=== PATIENT | female | born 1930 | race Caucasian/White ===

== ENCOUNTER 2017-04-05 18:11 | Observation (INO) | payer OTHER ==
[~2017-04-05] VITALS: Ht 170.2 cm; Wt 83.0 kg
[~2017-04-05 18:11] MED LIST: 1-ME1LIQ PO; AMOX875T20 PO; ASPI81TA82 PO; CHOL1CAP6 PO; CRANCAP11 PO; FISH1000 PO; LORTA5 PO; LOVA40TA PO; METO50TA PO; TAB-TAB PO; VITA100017 PO
[2017-04-05 18:16] VITALS: BP 151/79; PULSE 74; RESP 20; TEMP 98.9; O2SAT 96
[2017-04-05 18:33] VITALS: O2SAT 96
--- NOTE | 2017-04-05 18:39 | PD ---
HPI Chief Complaint: Allergic/Adverse Reaction Time Seen by Provider: 18:25 Travel History International Travel<30 days: No Contact w/Intl Traveler<30days: No Traveled to known affect area: No History of Present Illness HPI 86-year-old female here for evaluation of possible reaction to Macrobid. Patient reports that she has had a UTI all month and this is the fourth antibiotic that she has been prescribed by urologist Dr. Downs. She was previously on Macrobid 50 mg twice a day, and today started 100 mg. Her first dose was at around 11:00 AM. Her symptoms started a couple hours later and consisted of diffuse jitteriness, dyspnea, and chest pain. Patient reports that the chest pains were sharp/pressure, and moved all around her chest. She states that the chest pain resolved about an hour ago. There were no modifying factors. She is having mild dyspnea. No tongue or lip swelling. No vomiting. No rash. She is still feeling "shaky." No known history of coronary artery disease. No history of DVT or PE. No hemoptysis. 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 UTI) Hepatitis: No Hiatal Hernia: No Hypertension: Yes Immune Disorder: No Musculoskeletal: Yes (ARTHRITIS) Neurologic: No Psychiatric: Yes (CLAUSTRAPHOBIA (PANIC)) Reproductive: No Respiratory: No Thyroid Disease: No Tetanus Vaccination: < 5 Years Influenza Vaccination: Yes Past Surgical History AICD: No Gynecologic Surgery: Yes (TOTAL HYSTERECTOMY) Joint Replacement: Yes (BRIAN. KNEES) Pacemaker: No Other Surgery: Yes (MELLANOMA ON FACE. VERICOSE VEINS LEFT LEG) Social History Alcohol Use: Yes (2-3 WINE WEEKLY) Tobacco Use: No (A LITTLE MANY YEARS AGO.) Substance Use: No Allergies-Medications (Allergen,Severity, Reaction): Coded Allergies: Nitrofurantoin (Verified Allergy, Severe, Shortness of Breath, 04/05/17) Reported Meds & Prescriptions Reported Meds & Active Scripts Active Review of Systems Except as stated in HPI: all other systems reviewed are Neg Physical Exam Narrative GENERAL: Well-developed, well-nourished, awake, alert, comfortable, no acute distress. SKIN: Focused skin assessment warm/dry. No rash. HEAD: Atraumatic. Normocephalic. EYES: Pupils equal and round. No scleral icterus. No injection or drainage. ENT: Mucous membranes pink and moist. No tongue or lip swelling. No drooling or stridor. NECK: Trachea midline. No JVD. CARDIOVASCULAR: Regular rate and rhythm. RESPIRATORY: No accessory muscle use. Clear to auscultation. Breath sounds equal bilaterally. GASTROINTESTINAL: Abdomen soft, non-tender, nondistended. MUSCULOSKELETAL: No obvious deformities. No clubbing. No cyanosis. No edema. NEUROLOGICAL: Awake and alert. No obvious cranial nerve deficits. Motor grossly within normal limits. Normal speech. PSYCHIATRIC: Appropriate mood and affect; insight and judgment normal. Data Data Last Documented VS Vital Signs Date Time Temp Pulse Resp B/P Pulse Ox O2 Delivery O2 Flow Rate FiO2 04/05/17 19:11 65 18 154/70 97 Room Air 04/05/17 18:16 98.9 Orders Electrocardiogram (04/05/17 18:31) Basic Metabolic Panel (Bmp) (04/05/17 18:31) Ckmb (Isoenzyme) Profile (04/05/17 18:31) Complete Blood Count With Diff (04/05/17 18:31) Magnesium (Mg) (04/05/17 18:31) Prothrombin Time / Inr (Pt) (04/05/17 18:31) Act Partial Throm Time (Ptt) (04/05/17 18:31) Troponin I (04/05/17 18:31) Chest, Single Ap (04/05/17 18:31) Ecg Monitoring (04/05/17 18:31) Iv Access Insert/Monitor (04/05/17 18:31) Oximetry (04/05/17 18:31) Sodium Chloride 0.9% Flush (Ns Flush) (04/05/17 18:45) Diphenhydramine Inj (Benadryl Inj) (04/05/17 18:45) CKMB (04/05/17 18:43) CKMB% (04/05/17 18:43) Urinalysis - C+S If Indicated (04/05/17 19:44) Ct Abd/Pel W Iv Contrast(Rout) (04/05/17 ) Iohexol 350 Inj (Omnipaque 350 Inj) (04/05/17 20:12) Aspirin Chew (Aspirin Chew) (04/05/17 21:15) Labs Laboratory Tests Test 04/05/17 04/05/17 18:43 20:40 White Blood Count 9.4 TH/MM3 Red Blood Count 4.05 MIL/MM3 Hemoglobin 12.3 GM/DL Hematocrit 36.4 % Mean Corpuscular Volume 89.9 FL Mean Corpuscular Hemoglobin 30.3 PG Mean Corpuscular Hemoglobin 33.7 % Concent Red Cell Distribution Width 13.2 % Platelet Count 215 TH/MM3 Mean Platelet Volume 8.1 FL Neutrophils (%) (Auto) 84.3 % Lymphocytes (%) (Auto) 6.4 % Monocytes (%) (Auto) 3.7 % Eosinophils (%) (Auto) 1.4 % Basophils (%) (Auto) 4.2 % Neutrophils # (Auto) 8.0 TH/MM3 Lymphocytes # (Auto) 0.6 TH/MM3 Monocytes # (Auto) 0.3 TH/MM3 Eosinophils # (Auto) 0.1 TH/MM3 Basophils # (Auto) 0.4 TH/MM3 CBC Comment AUTO DIFF Differential Total Cells 100 Counted Neutrophils % (Manual) 80 % Band Neutrophils % 10 % Lymphocytes % 3 % Monocytes % 6 % Eosinophils % 1 % Neutrophils # (Manual) 8.5 TH/MM3 Differential Comment FINAL DIFF MANUAL Platelet Estimate NORMAL Platelet Morphology Comment NORMAL Red Cell Morphology Comment NORMAL Prothrombin Time 10.7 SEC Prothromb Time International 1.0 RATIO Ratio Activated Partial 26.2 SEC Thromboplast Time Sodium Level 140 MEQ/L Potassium Level 3.6 MEQ/L Chloride Level 103 MEQ/L Carbon Dioxide Level 28.1 MEQ/L Anion Gap 9 MEQ/L Blood Urea Nitrogen 15 MG/DL Creatinine 0.94 MG/DL Estimat Glomerular Filtration 56 ML/MIN Rate Random Glucose 96 MG/DL Calcium Level 8.7 MG/DL Magnesium Level 2.1 MG/DL Total Creatine Kinase 119 U/L Creatine Kinase MB 3.2 NG/ML Troponin I LESS THAN 0.02 NG/ML Urine Color YELLOW Urine Turbidity CLEAR Urine pH 5.5 Urine Specific [place] 1.017 Urine Protein NEG mg/dL Urine Glucose (UA) NEG mg/dL Urine Ketones NEG mg/dL Urine Occult Blood MOD Urine Nitrite NEG Urine Bilirubin NEG Urine Leukocyte Esterase TRACE Urine RBC 20-24 /hpf Urine WBC 3-5 /hpf Urine Squamous Epithelial 0-5 /hpf Cells Urine Bacteria NONE /hpf Microscopic Urinalysis Comment CULT NOT INDICATED MDM Medical Decision Making Medical Screen Exam Complete: Yes Emergency Medical Condition: Yes Interpretation(s) EKG: Sinus, rate 68, normal axis, normal intervals, no acute ischemic abnormality. Differential Diagnosis Adverse medication reaction, ACS, pneumothorax, pericarditis, PE, Narrative Course Initial vital signs show heart rate 74, blood pressure 151/79, pulse ox 96% on room air, oral temp of 98.9F. CBC shows WBC 9.4, hemoglobin 12.3, hematocrit 36.4, platelets 215, neutrophils 84%, band neutrophils 10%. CMP is unremarkable. Cardiac enzymes are negative. Chest x-ray: Mild basilar airspace disease with small pleural effusion. Patient was made aware of all findings. She was given a dose of Benadryl and states that her shakiness has resolved. On reexamination the patient is having some lower abdominal tenderness and complains of lower abdominal discomfort. Given these findings with bandemia, CT abdomen pelvis and UA were ordered. UA shows moderate occult blood, trace leukocyte esterase, negative nitrites, 20- 24 RBCs, no bacteria. CT abdomen pelvis: CONCLUSION: 1. Severe sigmoid diverticulosis without evidence for diverticulitis. Mild constipation. 2. Small bilateral pleural effusions with basilar atelectasis and scarring. Patient was made aware of all findings. She is resting comfortably. I'm somewhat concerned about the chest pain that she was experiencing earlier today. Her EKG today shows no signs of ischemia. Currently she has no chest pain. She denies known history of CAD, however endorses history of "leaky mitral valve." Because of her symptoms of chest pain she will be admitted for overnight observation to the chest pain center for further cardiac evaluation. Case discussed with hospitalist Dr. Phillips who will admit the patient to her service. Diagnosis Primary Impression: Chest pain Qualified Code: R07.9 - Chest pain, unspecified type Additional Impressions: Bandemia Hematuria Admitting Information Admitting Physician Requests: Baljeet Sims MD Apr 05, 2017 18:39
[2017-04-05] MEDS ORDERED: diphenhydrAMINE HCL 50 MG/ML VIAL IV PUSH ONE (18:45)
[2017-04-05 18:58] LABS: BASOPHIL # 0.4 TH/MM3 (0-0.2); BASOPHIL % 4.2 % (0.0-2.0); EOSINOPHIL # 0.1 TH/MM3 (0-0.4); EOSINOPHIL % 1.4 % (0.0-4.0); HEMATOCRIT 36.4 % (35.0-46.0); LYMPH % 6.4 % (9.0-44.0); LYMPHOCYTE # 0.6 TH/MM3 (1.0-4.8); MEAN CELL VOLUME 89.9 FL (80.0-100.0); MEAN CORPUSCULAR HEMOGLOBIN 30.3 PG (27.0-34.0); MEAN CORPUSCULAR HGB CONC 33.7 % (32.0-36.0); MONO % 3.7 % (0.0-8.0); NEUT % 84.3 % (16.0-70.0); PLATELET COUNT 215 TH/MM3 (150-450); RED BLOOD COUNT 4.05 MIL/MM3 (4.00-5.30); RED CELL DISTRIBUTION WIDTH 13.2 % (11.6-17.2); WHITE BLOOD COUNT 9.4 TH/MM3 (4.0-11.0)
[2017-04-05 18:59] LABS: HEMO FLAGS AUTO DIFF
[2017-04-05 19:08] LABS: CHLORIDE 103 MEQ/L (98-107); POTASSIUM 3.6 MEQ/L (3.5-5.1); SODIUM (NA) 140 MEQ/L (136-145)
--- NOTE | 2017-04-05 19:09 | RADHPO ---
EXAM DATE/TIME: 04/05/2017 18:40 [facility] COMPARISON: No previous studies available for comparison. INDICATIONS : Chest pain. MEDICAL HISTORY : None. SURGICAL HISTORY : None. ENCOUNTER: Initial ACUITY: 1 day PAIN SCORE: 5/10 LOCATION: Bilateral chest FINDINGS: There is mild basilar density, probably atelectasis. Small effusions. Heart size upper limits normal. Tortuous aorta. CONCLUSION: 1. Mild basilar airspace disease with small pleural effusions. River Menon MD on April 05, 2017 at 19:07 Board Certified Radiologist. This report was verified electronically.
[2017-04-05 19:11] VITALS: BP 154/70; PULSE 65; RESP 18; O2SAT 97
[2017-04-05 19:13] LABS: ANION GAP 9 MEQ/L (5-15); APTT (PATIENT) 26.2 SEC (24.3-30.1); BICARBONATE 28.1 MEQ/L (21.0-32.0); BLOOD UREA NITROGEN 15 MG/DL (7-18); MAGNESIUM 2.1 MG/DL (1.5-2.5); PROTHROMBIN TIME - PATIENT 10.7 SEC (9.8-11.6)
[2017-04-05 19:15] LABS: BANDS 10 % (0-6); EOSINOPHILS 1 % (0-4); NEUTROPHIL # MANUAL DIFF 8.5 TH/MM3 (1.8-7.7); POLYS (SEG NEUTROPHILS) 80 % (16-70); WBC DIFF SAMPLE 100
[2017-04-05 19:16] LABS: GLOMERULAR FILTRATION RATE 56 ML/MIN (>89); PLATELET ESTIMATE SMEAR NORMAL (NORMAL); PLATELET MORPHOLOGY NORMAL (NORMAL); SCAN/DIFF FINAL DIFF MANUAL
[2017-04-05 19:19] LABS: CREATINE KINASE 119 U/L (26-192)
[2017-04-05 19:32] LABS: CKMB 3.2 NG/ML (0.5-3.6)
[2017-04-05] MEDS ORDERED: IOHEXOL 350 MG/ML 10 ML VIAL (for RAD DIAG) IV ONE (20:12)
--- NOTE | 2017-04-05 20:47 | RADHPO ---
EXAM DATE/TIME: 04/05/2017 19:58 [facility] COMPARISON: No previous studies available for comparison. INDICATIONS : Lower left abdominal pain IV CONTRAST: 90 cc Omnipaque 350 (iohexol) IV ORAL CONTRAST: No oral contrast ingested. RADIATION DOSE: 16.45 CTDIvol (mGy) MEDICAL HISTORY : Hypertension. SURGICAL HISTORY : Hysterectomy. ENCOUNTER: Initial ACUITY: 2 days PAIN SCALE: 4/10 LOCATION: Left lower quadrant TECHNIQUE: Volumetric scanning of the abdomen and pelvis was performed. Using automated exposure control and ad justment of the mA and/or kV according to patient size, radiation dose was kept as low as reasonably achievable to obtain optimal diagnostic quality images. FINDINGS: There are small bilateral pleural effusions with basilar atelectasis. No acute findings in the liver, spleen, adrenals, kidneys or pancreas. No calcified gallstones or biliary ductal dilatation. There is severe sigmoid diverticulosis with less severe diverticular disease in the remainder of the colon. Mild constipation. Appendix is normal. No free fluid or free air. No bowel obstruction. Small fat containing umbilical hernia. CONCLUSION: 1. Severe sigmoid diverticulosis without evidence for diverticulitis. Mild constipation. 2. Small bilateral pleural effusions with basilar atelectasis and scarring. River Menon MD on April 05, 2017 at 20:38 Board Certified Radiologist. This report was verified electronically.
[2017-04-05 20:52] LABS: GLUCOSE,URINE NEG (NEG); KETONE, URINE NEG (NEG); NITRITE,URINE NEG (NEG); PH, URINE 5.5 (5.0-8.5)
[2017-04-05 20:55] LABS: BLOOD, URINE MOD (NEG); URINE COLOR YELLOW (YELLW/STRAW)
[2017-04-05 20:57] LABS: COMMENT (UR) CULT NOT INDICATED; CULTURE IF INDICATED CULT NOT INDICATED; SQUAMOUS EPITHELIAL CELL URINE 0-5 /hpf (0-5)
[2017-04-05 21:05] VITALS: BP 156/74; PULSE 68; RESP 18; O2SAT 97
[2017-04-05] MEDS ORDERED: ASPIRIN 81 MG CHEW TAB PO ONE (21:15)
[2017-04-05] MEDS: SODIUM CHLORIDE 0.9% FLUSH 10 ML FLUSH IVF PRN (21:19)
[2017-04-05 22:47] LABS: CREATINE KINASE 100 U/L (26-192)
[2017-04-05 23:24] VITALS: BP 157/72; PULSE 62; RESP 18; O2SAT 97
[2017-04-05] MEDS ORDERED: AMLO5TAB2 PO (23:52)
[2017-04-05] MEDS ORDERED: LOVA40TA PO (23:52)
[2017-04-05] MEDS ORDERED: METO50TA PO (23:52)
[2017-04-06] VITALS (7 sets, daily range): BP systolic 129–137; BP diastolic 69–70; PULSE 58–70; RESP 18–20; TEMP 97.1–97.5; O2SAT 92–97
[2017-04-06 02:26] LABS: CREATINE KINASE 85 U/L (26-192)
--- NOTE | 2017-04-06 07:38 | HHI.HP ---
[facility] Service [facility] Primary Care Physician Nazario Escobedo MD Admission Diagnosis chest pain, bandemia, hematuria Diagnoses: (1) Chest pain Diagnosis: Principal (2) Bandemia Diagnosis: Principal (3) Hypertension Diagnosis: Secondary (4) Hyperlipidemia Diagnosis: Secondary (5) Chronic urinary tract infection Diagnosis: Secondary Chief Complaint: Chest pain Travel History International Travel<30 Days: No Contact w/Intl Traveler <30 Da: No Traveled to Known Affected Are: No History of Present Illness Written by Miguel Duran, acting as scribe for Dr. Lugo on 04/06/17 at 07: 25. 86-year-old female with known history of hypertension, hyperlipidemia , chronic urinary tract infection who presented to hospital because of chest discomfort. Patient states that she has normal state of health until yesterday approximately 3 PM. At that time patient developed a sharp pain in her chest going from her epigastric region up to her neck with radiation into her back. She described as 5/10 on a pain scale. The patient indicates that she had associated nausea and shakiness. Denied any vomiting, diaphoresis, shortness of breath, dyspnea, lightheadedness, dizziness. Patient indicates that the pain lasted for approximately 1 hour. She thought the pain might been related to an increased dose of medication that she is taking for her urinary tract infection. She try to contact her urologist but was unsuccessful. She contacted pharmacist but was on hold too long so they came to the emergency department for evaluation. Patient is being treated for chronic urinary tract infection in the last 2 months. She has had multiple medications. She recently had increase in her medication to Macrobid 100 mg. Because of the patient's risk factors the patient was recommended observation of the chest pain center. Review of Systems Constitutional: DENIES: Diaphoretic episodes, Fatigue, Fever, Weight gain, Weight loss, Chills, Dizziness, Change in appetite, Night Sweats Eyes: DENIES: Blurred vision, Diplopia, Eye inflammation, Eye pain, Vision loss , Double Vision Ears, nose, mouth, throat: DENIES: Vertigo, Nasal discharge, Throat pain, Ear Pain, Running Nose, Sinus Pain Respiratory: DENIES: Apneas, Cough, Snoring, Wheezing, Hemoptysis, Sputum production, Shortness of breath Cardiovascular: COMPLAINS OF: Chest pain, DENIES: Palpitations, Syncope, Dyspnea on Exertion, Lower Extremity Edema, Orthopnea Gastrointestinal: COMPLAINS OF: Nausea, DENIES: Abdominal pain, Black stools, Bloody stools, Constipation, Diarrhea, Vomiting, Difficulty Swallowing, Anorexia Neurologic: DENIES: Abnormal gait, Headache, Localized weakness, Paresthesias, Seizures, Speech Problems, Tremor, Poor Balance Psychiatric: DENIES: Anxiety, Confusion, Mood changes, Depression, Hallucinations, Agitation, Suicidal Ideation, Homicidal Ideation Past Family Social History Past Medical History Hypertension Hyperlipidemia Chronic urinary tract infection Past Surgical History Hysterectomy Bilateral partial knee replacement Right total knee replacement 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 Mother had congestive heart failure. Denied any lung disease, diabetes, cancer , seizure, stroke Social History She states that over 30 years ago she used to smoke 12 cigarettes intermittently. He does drink a glass of wine 3 times weekly. Denies any illicit drugs Physical Exam Vital Signs Vital Signs Date Time Temp Pulse Resp B/P Pulse Ox O2 Delivery O2 Flow Rate FiO2 04/06/17 04:00 97.1 60 20 129/69 93 04/06/17 01:21 69 04/06/17 00:45 97.5 70 20 137/69 92 04/06/17 00:42 66 18 97 04/06/17 00:41 64 18 97 Room Air 04/05/17 23:24 62 18 157/72 97 Room Air 04/05/17 21:05 97 21 04/05/17 21:05 68 18 156/74 97 Room Air 04/05/17 19:11 65 18 154/70 97 Room Air 04/05/17 18:33 96 Room Air 04/05/17 18:27 96 Room Air 04/05/17 18:16 98.9 74 20 151/79 96 Physical Exam GENERAL: Well-developed, well-nourished, in no acute distress. alert and orientated HEENT: Head is normocephalic without any lesions or masses noted. Facial features are symmetric. Eyes: Pupils equal round reactive to light. Extraocular muscles are intact. Conjunctivae were clear. Oropharyngeal: Pharynx without any erythema edema. Tongue is midline without deviation. Buccal mucosa is moist without any masses or lesions NECK: Supple without any masses. Trachea midline no deviation. No JVD, no bruits are appreciated CARDIAC: Regular rhythm, regular rate. S1/S2 are heard. 2/6 ejection murmur noted in the fifth intercostal space midclavicular line. No gallops or rubs. LUNGS: Clear to auscultation bilaterally. No wheeze, rhonchi or rales. No use of accessory muscles on inspiration or expiration. ABDOMEN: Soft, nontender. Nondistended. Bowel sounds heard in all 4 quadrants. No organomegaly or masses. Negative rebound, negative guarding EXTREMITIES: No edema, pulses are equal bilaterally. No cyanosis or clubbing NEUROLOGY: Mood and affect appear appropriate. Cranial nerves II through XII grossly intact. Muscle strength 5/5 in upper and lower extremities bilaterally. Deep tendon reflexes are 2+ in upper and lower extremities bilaterally. Laboratory Laboratory Tests Test 04/05/17 04/05/17 04/05/17 04/06/17 18:43 20:40 22:10 01:31 White Blood Count 9.4 Red Blood Count 4.05 Hemoglobin 12.3 Hematocrit 36.4 Mean Corpuscular Volume 89.9 Mean Corpuscular Hemoglobin 30.3 Mean Corpuscular Hemoglobin 33.7 Concent Red Cell Distribution Width 13.2 Platelet Count 215 Mean Platelet Volume 8.1 Neutrophils (%) (Auto) 84.3 Lymphocytes (%) (Auto) 6.4 Monocytes (%) (Auto) 3.7 Eosinophils (%) (Auto) 1.4 Basophils (%) (Auto) 4.2 Neutrophils # (Auto) 8.0 Lymphocytes # (Auto) 0.6 Monocytes # (Auto) 0.3 Eosinophils # (Auto) 0.1 Basophils # (Auto) 0.4 CBC Comment AUTO DIFF Differential Total Cells 100 Counted Neutrophils % (Manual) 80 Band Neutrophils % 10 Lymphocytes % 3 Monocytes % 6 Eosinophils % 1 Neutrophils # (Manual) 8.5 Differential Comment FINAL DIFF MANUAL Platelet Estimate NORMAL Platelet Morphology Comment NORMAL Red Cell Morphology Comment NORMAL Prothrombin Time 10.7 Prothromb Time International 1.0 Ratio Activated Partial 26.2 Thromboplast Time Sodium Level 140 Potassium Level 3.6 Chloride Level 103 Carbon Dioxide Level 28.1 Anion Gap 9 Blood Urea Nitrogen 15 Creatinine 0.94 Estimat Glomerular Filtration 56 Rate Random Glucose 96 Calcium Level 8.7 Magnesium Level 2.1 Total Creatine Kinase 119 100 85 Creatine Kinase MB 3.2 Troponin I LESS THAN 0.02 LESS THAN 0.02 LESS THAN 0.02 Urine Color YELLOW Urine Turbidity CLEAR Urine pH 5.5 Urine Specific [place] 1.017 Urine Protein NEG Urine Glucose (UA) NEG Urine Ketones NEG Urine Occult Blood MOD Urine Nitrite NEG Urine Bilirubin NEG Urine Leukocyte Esterase TRACE Urine RBC 20-24 Urine WBC 3-5 Urine Squamous Epithelial 0-5 Cells Urine Bacteria NONE Microscopic Urinalysis Comment CULT NOT INDICATED Result Diagram: 04/05/17 1843 04/05/17 1843 Imaging Last Impressions Chest X-Ray 04/05/17 1831 Signed Impressions: Service Date/Time: Wednesday, April 05, 2017 18:40 - CONCLUSION: 1. Mild basilar airspace disease with small pleural effusions. River Menon MD Abdomen/Pelvis CT 04/05/17 0000 Signed Impressions: Service Date/Time: Wednesday, April 05, 2017 19:58 - CONCLUSION: 1. Severe sigmoid diverticulosis without evidence for diverticulitis. Mild constipation. 2. Small bilateral pleural effusions with basilar atelectasis and scarring. River Menon MD Assessment and Plan Assessment and Plan Chest pain, atypical Patient with increased risk factors to include age, hypertension, hyponatremia , family history of heart disease Patient been ruled out for any acute coronary event with serial cardiac enzymes which are negative Serial EKGs were evaluated and indicate sinus rhythm with first-degree AV block We'll pursue nuclear stress test rule out any underlying ischemia Continue aspirin, nitroglycerin as needed Continue patient's home medications to include beta ivy, statin Bandemia without leukocytosis No indication of infection at this time to include fever, signs of sepsis, CT scan does not indicate any intra-abdominal abnormality, Chest x-ray/CT the abdomen indicates bilateral pleural effusions with basilar atelectasis Patient does have history of chronic urinary tract infections and has been undergoing management over the last couple months Follow CBC Chronic urinary tract infection Hematuria Nausea vomiting. With dry heaves prior to presentation. Resolved. Urinalysis indicates hematuria, there is no indication for culture at this time We'll recommend patient contact her primary medical doctor prior to resuming antibiotics -Patient has Estrace cream at home. Recommend Estrace periurethrally at night prior to bed for prevention of UTIs.. Discontinue Macrobid secondary to nausea. Patient has some hematuria on UA, however no signs of infection. She will follow-up with primary care for this. She conveys understanding Hypertension, hyperlipidemia Continue home medications DVT prevention Low risk, early ambulation Discharge disposition Discharge home in stable condition Activity: Ad sonu. Diet: Healthy heart diet Medications per medication reconciliation Follow-up primary medical doctor in one week Problem Qualifiers (1) Chest pain: Qualified Code: R07.9 - Chest pain, unspecified type (2) Hypertension: Qualified Code: I15.9 - Secondary hypertension (3) Hyperlipidemia: Qualified Code: E78.5 - Hyperlipidemia, unspecified hyperlipidemia type Miguel Duran Apr 06, 2017 07:38 Marcio Lugo MD Apr 06, 2017 13:05
[2017-04-06] MEDS: SODIUM CHLORIDE 0.9% FLUSH 10 ML FLUSH IVF PRN (08:48)
[2017-04-06] MEDS ORDERED: PRAVASTATIN SOD 40 MG TAB PO SCH (09:00)
[2017-04-06] MEDS ORDERED: amLODIPine BESYLATE 5 MG TAB PO SCH (09:00)
[2017-04-06] MEDS ORDERED: METOPROLOL TARTRATE 50 MG TAB PO SCH (09:00)
[2017-04-06 09:40] LABS: AUTOMATED NEUTROPHIL # 6.1 TH/MM3 (1.8-7.7); EOSINOPHIL # 0.1 TH/MM3 (0-0.4); EOSINOPHIL % 1.6 % (0.0-4.0); HEMO FLAGS DIFF FINAL; LYMPH % 11.6 % (9.0-44.0); LYMPHOCYTE # 0.8 TH/MM3 (1.0-4.8); MEAN CELL VOLUME 90.1 FL (80.0-100.0); MEAN CORPUSCULAR HEMOGLOBIN 30.2 PG (27.0-34.0); MEAN CORPUSCULAR HGB CONC 33.5 % (32.0-36.0); MONO % 4.4 % (0.0-8.0); NEUT % 82.4 % (16.0-70.0); PLATELET COUNT 190 TH/MM3 (150-450); RED BLOOD COUNT 3.89 MIL/MM3 (4.00-5.30); RED CELL DISTRIBUTION WIDTH 13.1 % (11.6-17.2); WHITE BLOOD COUNT 7.3 TH/MM3 (4.0-11.0)
[2017-04-06] MEDS ORDERED: REGADENOSON INJ 0.4 MG/5 ML SYR IV ONE (10:46)
--- NOTE | 2017-04-06 12:04 | RADHPO ---
EXAM DATE/TIME: 04/06/2017 10:46 [facility] COMPARISON: No previous studies available for comparison. INDICATIONS : Chest pain moving all over chest with dyspnea and shaky feeling. Angina. DOSE: 2538 mCi Tc99m Myoview at stress. 8.1 mCi Tc99m Myoview at rest. 0.4 mg Lexiscan STRESS SYMPTOMS: Short of breath, flush and left rib pressure. EJECTION FRACTION: 56% MEDICAL HISTORY : Hypercholesterolemia. Hypertension. SURGICAL HISTORY : Hysterectomy. Total knee replacement, left. Total knee replacement, right. ENCOUNTER: Initial ACUITY: 1 day PAIN SCALE: 9/10 LOCATION: chest TECHNIQUE: The patient underwent pharmacologic stress with infusion of prescribed dose. Continuous ECG tracing was monitored during stress. Gated SPECT imaging was performed after stress and conventional SPECT i maging was performed at rest. The examination was performed on a SPECT/CT scanner, both attenuation and non-corrected datasets were reviewed. FINDINGS: DISTRIBUTION: The maximum perfused segment at stress is in the anterior wall. PERFUSION STUDY: The pattern of perfusion at stress is within normal limits. GATED STUDY: There is intact wall motion and thickening without hypokinetic or dyskinetic segments. CONCLUSION: Within normal limits. No stress-induced ischemia or abnormal wall motion demonstrated . RISK CATEGORY: Low Artemio Pizarro MD on April 06, 2017 at 12:01 Board Certified Radiologist. This report was verified electronically.
--- NOTE | 2017-04-06 12:56 | EKG ---
Date Performed: 04/05/2017 Time Performed: 18:41:52 PTAGE: 86 years EKG: Sinus rhythm Normal ECG NO PREVIOUS TRACING DOCTOR: Benigno Swartz Interpretating Date/Time 04/06/2017 12:55:59
--- NOTE | 2017-04-06 12:56 | TR ---
Date Performed: 04/06/2017 Time Performed: 11:09:16 DOCTOR: Benigno Swartz DRUG LIST: CLINICAL HISTORY: ANGINA REASON FOR TEST: REASON FOR ENDING: OBSERVATION: CONCLUSION: Lexiscan stress test was performed under standard four minute protocol. Radionuclide was injected one minute prior to ending the test. The patient was asymptomatic. Rare PVCs were noted . No electrocardiographic abnormalities were present to suggest ischemia. Recovery was quick and unev entful. Nuclear imaging and interpretation are pending. COMMENTS:
--- NOTE | 2017-04-06 12:57 | EKG ---
Date Performed: 04/05/2017 Time Performed: 22:09:22 PTAGE: 86 years EKG: Sinus rhythm Normal ECG PREVIOUS TRACING : 04/05/2017 18.41 DOCTOR: Benigno Swartz Interpretating Date/Time 04/06/2017 12:56:24
--- NOTE | 2017-04-06 12:59 | EKG ---
Date Performed: 04/06/2017 Time Performed: 01:05:02 PTAGE: 86 years EKG: Sinus rhythm with borderline 1st degree A-V block. Borderline ECG PREVIOUS TRACING : 04/05/2017 22.09 DOCTOR: Benigno Swartz Interpretating Date/Time 04/06/2017 12:57:01
== END 2017-04-06 14:04 | disposition home or self-care (01) ==
LOC: PHED 18:11 → PHEDA 21:54 → PH3A 04-06 00:44
PROVIDERS: ADMIT Internal Medicine; ATTEND Internal Medicine
DX: R07.89 Other chest pain (principal); D72.825 Bandemia; I10 Essential (primary) hypertension; E87.1 Hypo-osmolality and hyponatremia; E78.5 Hyperlipidemia, unspecified; R31.9 Hematuria, unspecified; R11.2 Nausea with vomiting, unspecified; F40.240 Claustrophobia; Z87.440 Personal history of urinary (tract) infections; Z96.653 Presence of artificial knee joint, bilateral; Z85.820 Personal history of malignant melanoma of skin; Z88.1 Allergy status to other antibiotic agents; Z87.891 Personal history of nicotine dependence; Z82.49 Family history of ischemic heart disease and other diseases of the circulatory system; I44.0 Atrioventricular block, first degree; R94.31 Abnormal electrocardiogram [ECG] [EKG]; R06.00 Dyspnea, unspecified
CPT/HCPCS: 71010; 74177; 78452; 80048; 81001; 82550; 82552; 83735; 83880; 84484; 85007; 85025; 85027; 85610; 85730; 93005; 93017; 96374; 99285; A9502; G0378; J1200; J2785; Q9967